=== PATIENT | female | born 1990 | race Caucasian/White ===

== ENCOUNTER 2017-10-12 20:20 | Emergency (ER) | payer BC ==
[2017-10-12 20:54] VITALS: BP 113/59
[2017-10-12] MEDS ORDERED: Sulfamethox/Trimethoprim DS 800/160* TAB PO ONE ×2 (21:42→21:53)
--- NOTE | 2017-10-12 22:00 | UC ---
Complaint Female HPI - HPI Summary HPI Summary: BURNING ON URINATION X 10 DAYS + FREQUENCY , NO FEVER, NO CHILLS, NO FLANK PAIN - History Of Current Complaint Chief Complaint: UCGU Stated Complaint: URINARY Time Seen by Provider: 10/12/17 21:38 Hx Obtained From: Patient Hx Last Menstrual Period: end aug. ?: No Onset/Duration: Gradual Onset, Lasting Days - 10, Still Present Timing: Constant Severity Initially: Moderate Severity Currently: Moderate Character: Burning Aggravating Factor(s): Urination Associated Signs And Symptoms: Negative: Fever, Back Pain, Vaginal Bleeding/ Discharge, Vaginal Discharge, Nausea, Vomiting(# Of Episodes =), Genital Swelling, Genital Blisters, Retained Foregin Body (Specify) - Allergies/Home Medications Allergies/Adverse Reactions: Allergies Allergy/AdvReac Type Severity Reaction Status Date / Time Latex Allergy Rash And Verified 10/12/17 20:47 Itching Home Medications: Home Medications Cranberry-Vitamin C-Probiotic [Azo Cranberry 250-30 mg] 1 tab PO DAILY PRN 10/12 [History Confirmed 10/12/17] Etonogestrel [Nexplanon] 68 mg IMPLANT ONCE 10/12/17 [History Confirmed 10/12/17 ] PMH/Surg Hx/FS Hx/Imm Hx Previously Healthy: Yes - Surgical History Surgical History: None - Family History Known Family History: Negative: Diabetes - Social History Alcohol Use: Rare Substance Use Type: None Smoking Status (MU): Never Smoked Tobacco When Did the Patient Quit Smoking/Using Tobacco: 01/2014 - Immunization History Most Recent Influenza Vaccination: 2014 Review of Systems Constitutional: Negative Skin: Negative Eyes: Negative ENT: Negative Respiratory: Negative Cardiovascular: Negative Gastrointestinal: Negative Genitourinary: Dysuria Is Patient Immunocompromised?: No All Other Systems Reviewed And Are Negative: Yes Physical Exam Triage Information Reviewed: Yes Appearance: Well-Appearing, No Pain Distress, Well-Nourished Vital Signs: Initial Vital Signs Temp 98.9 F 10/12/17 20:49 Pulse 79 10/12/17 20:49 Resp 18 10/12/17 20:49 BP 113/59 10/12/17 20:49 Vital Signs Reviewed: Yes Eyes: Positive: Conjunctiva Clear ENT: Positive: Normal ENT inspection, Hearing grossly normal, Pharynx normal Neck: Positive: Supple, Nontender, No Lymphadenopathy Respiratory: Positive: Chest non-tender, Lungs clear, Normal breath sounds Cardiovascular: Positive: RRR, No Murmur, Pulses Normal Abdominal Exam: Normal Abdomen Description: Positive: Nontender, Soft. Negative: CVA Tenderness (R), CVA Tenderness (L), Distended, Guarding Skin Exam: Normal Complaint Female Dx - Differential Dx/Diagnosis Provider Diagnoses: UTI Discharge - Discharge Plan Condition: Stable Disposition: HOME Prescriptions: Sulfamethox/Trimethoprim DS* [Bactrim DS 800/160 TAB*] 1 tab PO BID #14 tab Patient Education Materials: Urinary Tract Infection in Women (ED) Referrals: Maria M Hendrickson MD [Primary Care Provider] - If Needed
== END 2017-10-12 22:03 | disposition home or self-care (01) ==
LOC: UCCORT 20:20
DX: N39.0 Urinary tract infection, site not specified (principal); Z91.040 Latex allergy status
CPT/HCPCS: 81003; 87077; 87086; 99212; A9270-GY; G0463

== ENCOUNTER 2017-12-16 09:55 | Emergency (ER) | payer BC ==
[2017-12-16 10:34] VITALS: BP 103/63
--- NOTE | 2017-12-16 12:43 | UC ---
Abdominal Pain Female HPI - HPI Summary HPI Summary: 27 yo female with n/v x 5 days usually occurs at night has one episode of diarrhea today requests test she just switched BC method this is the third time she has has this in three months - History of Current Complaint Chief Complaint: UCGI Stated Complaint: FLU SYMPTOMS Time Seen by Provider: 12/16/17 12:25 Hx Obtained From: Patient Hx Last Menstrual Period: 12/01/17 Onset/Duration: Sudden Onset, Lasting Days Timing: Constant Severity Initially: Mild Severity Currently: Mild Pain Intensity: 4 Location: Diffuse Character: Cramping Alleviating Factor(s): Vomiting Associated Signs and Symptoms: Positive: Decreased Appetite, Nausea, Vomiting, Diarrhea. Negative: Fever, Cough, Chest Pain, Dizzy, Back Pain, Constipation, Blood in Stool, Urinary Symptoms, Vaginal Bleeding, Vaginal Discharge Allergies/Adverse Reactions: Allergies Allergy/AdvReac Type Severity Reaction Status Date / Time MS Latex [Latex] Allergy Rash And Verified 12/16/17 10:33 Itching Home Medications: Home Medications Norgestimate-Ethinyl Estradiol [[id number] Tablet] 12/16/17 [History] PMH/Surg Hx/FS Hx/Imm Hx Previously Healthy: Yes - Surgical History Surgical History: Yes Surgery Procedure, Year, and Place: nexplanon removal - Family History Known Family History: Negative: Diabetes - Social History Alcohol Use: Rare Substance Use Type: None Smoking Status (MU): Never Smoked Tobacco When Did the Patient Quit Smoking/Using Tobacco: 01/2014 - Immunization History Most Recent Influenza Vaccination: 2014 Review of Systems Constitutional: Negative Skin: Negative Eyes: Negative ENT: Negative Respiratory: Negative Cardiovascular: Negative Gastrointestinal: Abdominal Pain, Vomiting, Diarrhea Genitourinary: Negative Motor: Negative Neurovascular: Negative Musculoskeletal: Negative Neurological: Negative Psychological: Negative Is Patient Immunocompromised?: No All Other Systems Reviewed And Are Negative: Yes Physical Exam Triage Information Reviewed: Yes Appearance: Well-Appearing, No Pain Distress, Well-Nourished Vital Signs: Initial Vital Signs Temp 98.5 F 12/16/17 10:29 Pulse 80 12/16/17 10:29 Resp 18 12/16/17 10:29 BP 103/63 12/16/17 10:29 Pulse Ox 100 12/16/17 10:29 Vital Signs Reviewed: Yes Eyes: Positive: Conjunctiva Clear ENT: Positive: Hearing grossly normal, TMs normal, Uvula midline. Negative: Nasal congestion, Nasal drainage, Tonsillar swelling, Tonsillar exudate, Trismus , Muffled voice, Hoarse voice, Dental tenderness, Sinus tenderness Neck: Positive: Supple, Nontender, No Lymphadenopathy Respiratory: Positive: Lungs clear, Normal breath sounds, No respiratory distress, No accessory muscle use Cardiovascular: Positive: RRR, No Murmur Abdomen Description: Positive: No Organomegaly. Negative: Nontender - slight tenderness suprapubically, CVA Tenderness (R), CVA Tenderness (L) Bowel Sounds: Positive: Present Musculoskeletal: Positive: ROM Intact, No Edema Neurological: Positive: Alert Psychological Exam: Normal Skin Exam: Normal Abd Pain Female Course/Dx - Differential Dx/Diagnosis Provider Diagnoses: acute gastritis Discharge - Discharge Plan Condition: Stable Disposition: HOME Prescriptions: Famotidine TAB* [Pepcid 20 MG TAB*] 20 mg PO DAILY #14 tab Ondansetron TAB* [Zofran Tab*] 4 mg PO Q6H PRN #10 tab PRN Reason: Nausea Patient Education Materials: Acute Nausea and Vomiting (ED) Referrals: Maria M Hendrickson MD [Primary Care Provider] - Additional Instructions: I suggest you follow up with your provider next week This is the third similar episode you've had in about three months You may need upper endoscopy
== END 2017-12-16 13:06 | disposition home or self-care (01) ==
LOC: UCCORT 09:55
DX: K29.70 Gastritis, unspecified, without bleeding (principal); Z32.02 Encounter for pregnancy test, result negative
CPT/HCPCS: 81003; 84702; 99212; G0463

== ENCOUNTER 2018-01-13 19:18 | Emergency (ER) | payer BC ==
[2018-01-13 20:18] VITALS: BP 124/72
--- NOTE | 2018-01-13 21:20 | UC ---
Complaint Female HPI - HPI Summary HPI Summary: 2 days of urinary frequency and burning, not responding to increase in fluids. Had UTI in --macrodantin failed, and Staph saprophyticus infection responded to bactrim. No UTI's until sx began yesterday. No dypsareunia. Has some increase in vaginal discharge since starting ocp. - History Of Current Complaint Chief Complaint: UCGU Stated Complaint: URINARY Time Seen by Provider: 01/13/18 20:20 Hx Obtained From: Patient Hx Last Menstrual Period: 12/28/17 Onset/Duration: Sudden Onset, Lasting Days - 2 Timing: Constant Severity Initially: Moderate Severity Currently: Moderate Pain Intensity: 0 Aggravating Factor(s): Urination Alleviating Factor(s): Nothing Associated Signs And Symptoms: Positive: Negative - Allergies/Home Medications Allergies/Adverse Reactions: Allergies Allergy/AdvReac Type Severity Reaction Status Date / Time latex Allergy Rash And Verified 01/13/18 20:06 Itching Home Medications: Home Medications Uribel 1 tab PO ONCE 01/13/18 [History] PMH/Surg Hx/FS Hx/Imm Hx Previously Healthy: Yes - recent assessment of epigastric pain took ranitidine - Surgical History Surgical History: Yes Surgery Procedure, Year, and Place: nexplanon removal - Family History Known Family History: Negative: Diabetes - Social History Occupation: Employed Full-time - does home daycare. Alcohol Use: Rare Substance Use Type: None Smoking Status (MU): Never Smoked Tobacco When Did the Patient Quit Smoking/Using Tobacco: 01/2014 - Immunization History Most Recent Influenza Vaccination: 2014 Review of Systems Constitutional: Negative Skin: Negative Eyes: Negative ENT: Negative Respiratory: Negative Cardiovascular: Negative Gastrointestinal: Vomiting - has had several bouts of vomiting and diarrhea since the start of the year. Has altered her diet. Genitourinary: Dysuria, Frequency, Other - on ocp, expects withdrawal bleed next week Motor: Negative Neurovascular: Negative Musculoskeletal: Negative Neurological: Negative Psychological: Negative Is Patient Immunocompromised?: No All Other Systems Reviewed And Are Negative: Yes Physical Exam Triage Information Reviewed: Yes Appearance: Well-Appearing, Thin, Other: - looks fatigued. Vital Signs: Initial Vital Signs Temp 99.2 F 01/13/18 20:06 Pulse 68 01/13/18 20:06 Resp 16 01/13/18 20:06 BP 124/72 03/08/18 20:06 Pulse Ox 100 01/13/18 20:06 ENT Exam: Normal ENT: Positive: Pharynx normal Neck: Positive: No Lymphadenopathy Respiratory: Positive: Lungs clear, Normal breath sounds Cardiovascular: Positive: RRR, No Murmur Abdomen Description: Positive: Soft, Other: - suprapubic tenderness.. Negative : CVA Tenderness (R), CVA Tenderness (L) Musculoskeletal Exam: Normal Neurological Exam: Normal Psychological Exam: Normal Skin Exam: Normal Diagnostics - Laboratory Diagnostic Studies Completed/Ordered: UA esterace and rbc positive Complaint Female Dx - Course Course Of Treatment: bactrim for suspected UTI; discussed follow up with PMD - Differential Dx/Diagnosis Differential Diagnosis/HQI/PQRI: Urinary Tract Infection Provider Diagnoses: UTI Discharge - Discharge Plan Condition: Stable Disposition: HOME Prescriptions: Sulfamethox/Trimethoprim DS* [Bactrim DS 800/160 TAB*] 1 tab PO BID #10 tab Patient Education Materials: Urinary Tract Infection in Women (ED) Referrals: Maria M Hendrickson MD [Primary Care Provider] - Additional Instructions: Begin bactrim twice daily pending culture report. You can call on Wednesday morning to confirm report; you will be called if a change of antibiotic is needed. You have follow up arranged with your primary care doctor to discuss both your gi concerns and the frequent UTI's.
[2018-01-13] MEDS: Sulfamethox/Trimethoprim DS 800/160* TAB PO ONE ×2 (21:24→21:26)
[2018-01-13] MEDS ORDERED: Sulfamethox/Trimethoprim DS 800/160* TAB ONE (21:27)
--- NOTE | 2018-01-16 07:14 | UC ---
- Progress Note Progress Note: please notify pt NO UTI STOP antibiotic RECHECK if still symptomatic
== END 2018-01-13 21:31 | disposition home or self-care (01) ==
LOC: UCCORT 19:18
DX: N39.0 Urinary tract infection, site not specified (principal)
CPT/HCPCS: 81003; 87086; 99212; A9270-GY; G0463